=== PATIENT | male | born 1955 | race Caucasian/White ===

== ENCOUNTER 2019-02-01 13:07 | Emergency (ER) | payer MEDICARE, MEDICAID ==
[~2019-02-01] VITALS: Ht 162.6 cm; Wt 135.0 kg
[~2019-02-01 13:07] MED LIST: CARV3.12 PO; CYA500T PO; FURO-149 PO; LEVO75TA7 PO; NOR5T PO; NORCO10T PO; PANT40TA4 PO; SUCR1TAB PO; TERA10CA4 PO
[2019-02-01 13:10] VITALS: BP 124/92
--- NOTE | 2019-02-01 13:17 | NUR ---
105 MINUTES INTO DIALYSIS, SCHEDULED FOR 240 MINUTES
--- NOTE | 2019-02-01 13:18 | NUR ---
SHUNT IN RIGHT ARM
[2019-02-01] MEDS ORDERED: LIDOcaine Viscous 15ml cup MM ONE (13:45)
[2019-02-01] MEDS ORDERED: mag hydrox/Alum hydrox/simeth 30ml oral suspension PO ONE (13:45)
[2019-02-01] MEDS ORDERED: LIDO20SO16 PO (13:47)
[2019-02-01] MEDS ORDERED: MAG355OR18 PO (13:47)
--- NOTE | 2019-02-01 14:27 | NUR ---
CALLED [facility] FOR [facility]
== END 2019-02-01 15:16 | disposition home or self-care (01) ==
LOC: ER 13:07
DX: R13.10 Dysphagia, unspecified (principal); C32.9 Malignant neoplasm of larynx, unspecified; I13.2 Hypertensive heart and chronic kidney disease with heart failure and with stage 5 chronic kidney disease, or end stage renal disease; N18.6 End stage renal disease; I50.9 Heart failure, unspecified; Z99.2 Dependence on renal dialysis; Z79.899 Other long term (current) drug therapy
CPT/HCPCS: 93005; 99283